=== PATIENT | female | born 1995 | race Caucasian/White ===

== ENCOUNTER 2018-07-30 16:36 | Emergency (ER) | payer MEDICAID ==
[~2018-07-30] VITALS: Ht 167.6 cm; Wt 60.6 kg
[2018-07-30 16:40] VITALS: BP 117/64
== END 2018-07-30 17:47 | disposition home or self-care (01) ==
LOC: ER 16:37
DX: G89.29 Other chronic pain (principal); M79.674 Pain in right toe(s)
CPT/HCPCS: 99281